=== PATIENT | female | born 1980 | race Hispanic/Latino ===

== ENCOUNTER 2016-05-28 10:29 | Emergency (ER) | payer SELFPAY ==
[~2016-05-28] VITALS: Ht 152.4 cm; Wt 87.5 kg
[~2016-05-28 10:29] MED LIST: MACRODANTIN100 MG OR; METOPROLOL25 M1 OR; NO HOME MEDS
[2016-05-28] MEDS ORDERED: LISINOPRIL20 MG PO (10:57)
[2016-05-28] MEDS ORDERED: LOPID600 MG PO (10:58)
[2016-05-28] MEDS ORDERED: METFORMIN500 MG PO (10:58)
[2016-05-28] MEDS ORDERED: CETIRIZINE10 MG PO (10:59)
[2016-05-28] MEDS ORDERED: MAXZIDE-2537.5 MG/TA PO (10:59)
[2016-05-28] MEDS ORDERED: BACTRIM DS1 TAB PO (11:00)
[2016-05-28 11:55] LABS: HEMATOCRIT 34.8 % (37.0-47.0); HEMOGLOBIN 11.4 g/dl (12.0-16.0); MEAN CELL VOLUME 92.1 fL CALC (80.0-100.0); MEAN CORPUSCULAR HGB 30.2 pG CALC (26.0-32.0); MEAN CORPUSCULAR HGB CONC 32.8 g/L CALC (32.0-36.0); NEUT# 9.15 thou/uL (2.00-7.15); RED BLOOD COUNT 3.78 mill/uL (4.20-5.60); RED CELL DISTRI WIDTH 15.9 % (11.5-15.5)
[2016-05-28 12:02] LABS: ALBUMIN 3.6 g/dL (3.2-5.0); ALKALINE PHOSPHATASE 118 u/l (38-126); ANION GAP 14 (6-22 (CALC)); BILIRUBIN, TOTAL 0.6 mg/dL (0.0-1.4); BUN 14 mg/dL (7-17); BUN/CREATININE RATIO 22 (12-20 (CALC)); CALCIUM 8.8 mg/dL (8.4-10.2); CARBON DIOXIDE 27 mmol/l (22-30); CHLORIDE 100 mmol/l (95-108); CREATININE 0.6 mg/dL (0.5-1.0); GFR > 60 ML/MIN (>=60 (CALC)); GFR FOR AFR.AMER. > 60 ML/MIN (>=60 (CALC)); GLUCOSE 275 mg/dL (65-105); POTASSIUM 4.8 mmol/l (3.5-5.1); SGOT/AST 37 u/l (14-36); SGPT/ALT 33 u/l (9-52); SODIUM 136 mmol/l (137-146); TOTAL PROTEIN 7.2 g/dL (6.3-8.2)
[2016-05-28] MEDS ORDERED: CEPHALEXIN500 MG PO (12:02)
[2016-05-28] MEDS ORDERED: CIPROFLOXACN500 MG PO (12:02)
[2016-05-28 12:05] LABS: IMMATURE GRANULOCYTES 6.7 % (0.0-1.0)
[2016-05-28 12:39] VITALS: BP 132/79
== END 2016-05-28 12:48 | disposition home or self-care (01) | DRG 603 ==
LOC: ED 10:29
PROVIDERS: Emergency Medicine
DX: L02.415 Cutaneous abscess of right lower limb (principal); B95.62 Methicillin resistant Staphylococcus aureus infection as the cause of diseases classified elsewhere; L03.115 Cellulitis of right lower limb

== ENCOUNTER 2017-01-25 14:06 | Emergency (ER) | payer SELFPAY ==
[~2017-01-25] VITALS: Ht 152.4 cm; Wt 80.0 kg
[~2017-01-25 14:06] MED LIST changes: +BACTRIM DS1 TAB PO; +CEPHALEXIN500 MG PO; +CETIRIZINE10 MG PO; +CIPROFLOXACN500 MG PO; +LISINOPRIL20 MG PO; +LOPID600 MG PO; +MAXZIDE-2537.5 MG/TA PO; +METFORMIN500 MG PO
[2017-01-25 15:59] LABS: HEMATOCRIT 37.9 % (37.0-47.0); HEMOGLOBIN 12.7 g/dl (12.0-16.0); MEAN CELL VOLUME 94.8 fL CALC (80.0-100.0); MEAN CORPUSCULAR HGB 31.8 pG CALC (26.0-32.0); MEAN CORPUSCULAR HGB CONC 33.5 g/L CALC (32.0-36.0); NEUT# 8.85 thou/uL (2.00-7.15); RED CELL DISTRI WIDTH 15.5 % (11.5-15.5)
[2017-01-25 16:18] LABS: ALBUMIN 4.3 g/dL (3.2-5.0); ALKALINE PHOSPHATASE 79 u/l (38-126); ANION GAP 18 (6-22 (CALC)); BILIRUBIN, TOTAL 0.6 mg/dL (0.0-1.4); BUN 28 mg/dL (7-17); BUN/CREATININE RATIO 37 (12-20 (CALC)); CALCIUM 10.1 mg/dL (8.4-10.2); CARBON DIOXIDE 23 mmol/l (22-30); CHLORIDE 102 mmol/l (95-108); CREATININE 0.8 mg/dL (0.5-1.0); GFR > 60 ML/MIN (>=60 (CALC)); GFR FOR AFR.AMER. > 60 ML/MIN (>=60 (CALC)); GLUCOSE 254 mg/dL (65-105); IMMATURE GRANULOCYTES 6.8 % (0.0-1.0); POTASSIUM 4.6 mmol/l (3.5-5.1); SGOT/AST 21 u/l (14-36); SGPT/ALT 45 u/l (9-52); SODIUM 139 mmol/l (137-146)
[2017-01-25] MEDS ORDERED: ALLOPURINOL300 MG PO (16:19)
[2017-01-25 16:57] LABS: URINE BILIRUBIN - DIPSTICK NEGATIVE (NEGATIVE); URINE BLOOD DIPSTICK TRACE-INTACT (NEGATIVE); URINE CLARITY SL CLOUDY; URINE COLOR YELLOW; URINE GLUCOSE - DIPSTICK >=1000 mg/dL (NEGATIVE); URINE KETONE NEGATIVE (NEGATIVE); URINE LEUK ESTERASE NEGATIVE (NEGATIVE); URINE NITRITE - DIPSTICK NEGATIVE (Negative); URINE PROTEIN - DIPSTICK 100 mg/dL (NEG-TRACE); URINE SPECIFIC GRAVITY 1.025; URINE UROBILINOGEN - DIPSTICK 0.2 E.U./dL (0.2)
[2017-01-25 17:19] LABS: URINE BACTERIA MANY hpf; URINE SQUAMOUS EPITHELIAL CELL FEW EPI/hpf (0-FEW)
[2017-01-25] MEDS ORDERED: CIPROFLOXACN500 MG PO (17:32)
[2017-01-25 17:45] VITALS: BP 120/71
== END 2017-01-25 17:45 | disposition home or self-care (01) | DRG 638 ==
LOC: ED 14:06
PROVIDERS: Emergency Medicine
DX: E11.65 Type 2 diabetes mellitus with hyperglycemia (principal); N39.0 Urinary tract infection, site not specified; I10 Essential (primary) hypertension; B96.20 Unspecified Escherichia coli [E. coli] as the cause of diseases classified elsewhere

== ENCOUNTER 2018-01-15 18:31 | Emergency (ER) | payer SELFPAY ==
[~2018-01-15] VITALS: Ht 152.4 cm; Wt 66.0 kg
[~2018-01-15 18:31] MED LIST changes: +ALLOPURINOL300 MG PO
[2018-01-15 19:46] LABS: HEMATOCRIT 43.6 % (37.0-47.0); HEMOGLOBIN 14.5 g/dl (12.0-16.0); IMMATURE GRANULOCYTES 3.4 % (0.0-5.0); MEAN CELL VOLUME 94.6 fL CALC (80.0-100.0); MEAN CORPUSCULAR HGB 31.5 pG CALC (26.0-32.0); MEAN CORPUSCULAR HGB CONC 33.3 g/L CALC (32.0-36.0); NEUT# 9.07 thou/uL (2.00-7.15); RED BLOOD COUNT 4.61 mill/uL (4.20-5.60)
[2018-01-15 19:55] LABS: ALBUMIN 4.6 g/dL (3.2-5.0); ALKALINE PHOSPHATASE 88 u/l (38-126); ANION GAP 16 (6-22 (CALC)); BILIRUBIN, TOTAL 0.6 mg/dL (0.0-1.4); BUN 32 mg/dL (7-17); BUN/CREATININE RATIO 35 (12-20 (CALC)); CARBON DIOXIDE 24 mmol/l (22-30); CHLORIDE 101 mmol/l (95-108); CREATININE 0.9 mg/dL (0.5-1.0); ETHYL ALCOHOL 0 mg/dl (0-30); GFR > 60 ML/MIN (>=60 (CALC)); GFR FOR AFR.AMER. > 60 ML/MIN (>=60 (CALC)); POTASSIUM 3.8 mmol/l (3.5-5.1); SGOT/AST 20 u/l (14-36); SODIUM 136 mmol/l (137-146); TOTAL PROTEIN 7.6 g/dL (6.3-8.2)
[2018-01-15 20:28] LABS: URINE BLOOD DIPSTICK LARGE (NEGATIVE); URINE COLOR BROWN; URINE GLUCOSE - DIPSTICK >=1000 mg/dL (NEGATIVE); URINE KETONE NEGATIVE (NEGATIVE); URINE LEUK ESTERASE TRACE (NEGATIVE); URINE PH 6.5 (4.5-8.0); URINE PROTEIN - DIPSTICK >=300 mg/dL (NEG-TRACE); URINE SPECIFIC GRAVITY >=1.030
[2018-01-15 20:29] LABS: URINE BILIRUBIN - DIPSTICK NEGATIVE (NEGATIVE); URINE CLARITY TURBID; URINE NITRITE - DIPSTICK POSITIVE (Negative)
[2018-01-15 20:30] LABS: URINE RBC TNTC RBC/hpf (0-5); URINE SQUAMOUS EPITHELIAL CELL FEW EPI/hpf (0-FEW)
[2018-01-15 20:40] LABS: BARBITURATES NEGATIVE (NEGATIVE); COCAINE NEGATIVE (NEGATIVE); METHADONE NEGATIVE (NEGATIVE); OXCYCODONE NEGATIVE (NEGATIVE); TETRAHYDROCANNABIONOL NEGATIVE (NEGATIVE); TRICYLIC ANTIDEPRESSANTS NEGATIVE (NEGATIVE)
[2018-01-15] MEDS ORDERED: GLUCOTROL10 MG PO (21:12)
[2018-01-15] MEDS ORDERED: CRESTOR20 MG PO (21:13)
[2018-01-15] MEDS ORDERED: VITAMIN B-121000 MCG PO (21:14)
[2018-01-15] MEDS ORDERED: CIPROFLOXACN500 MG PO (22:35)
[2018-01-15 23:34] VITALS: BP 138/93
== END 2018-01-15 23:25 | DRG 880 ==
LOC: ED 18:31
PROVIDERS: Emergency Medicine; Family Medicine
DX: R45.851 Suicidal ideations (principal); N39.0 Urinary tract infection, site not specified; F32.9 Major depressive disorder, single episode, unspecified; B96.1 Klebsiella pneumoniae [K. pneumoniae] as the cause of diseases classified elsewhere

== ENCOUNTER 2018-04-21 19:32 | Emergency (ER) | payer SELFPAY ==
[~2018-04-21] VITALS: Ht 152.4 cm; Wt 65.0 kg
[~2018-04-21 19:32] MED LIST changes: +CRESTOR20 MG PO; +GLUCOTROL10 MG PO; +VITAMIN B-121000 MCG PO
[2018-04-21] MEDS ORDERED: DOXYCYCL HYC100 MG PO (20:17)
[2018-04-21 20:39] VITALS: BP 129/91
== END 2018-04-21 20:39 | disposition home or self-care (01) | DRG 603 ==
LOC: ED 19:32
DX: L03.115 Cellulitis of right lower limb (principal); E11.9 Type 2 diabetes mellitus without complications; I10 Essential (primary) hypertension; M10.9 Gout, unspecified; E78.00 Pure hypercholesterolemia, unspecified

== ENCOUNTER 2018-04-23 09:56 | Emergency (ER) | payer SELFPAY ==
[~2018-04-23] VITALS: Ht 152.4 cm; Wt 63.6 kg
[~2018-04-23 09:56] MED LIST changes: +DOXYCYCL HYC100 MG PO
[2018-04-23] MEDS ORDERED: CRESTOR40 MG PO (10:52)
[2018-04-23] MEDS ORDERED: TRAMADOL HYDROC50 MG PO (11:19)
[2018-04-23 11:50] VITALS: BP 107/63
== END 2018-04-23 11:50 | disposition home or self-care (01) | DRG 603 ==
LOC: ED 09:56
DX: L03.115 Cellulitis of right lower limb (principal); E11.9 Type 2 diabetes mellitus without complications; I10 Essential (primary) hypertension; M10.9 Gout, unspecified; E78.00 Pure hypercholesterolemia, unspecified

== ENCOUNTER 2018-04-26 09:52 | Emergency (ER) | payer SELFPAY ==
[~2018-04-26] VITALS: Ht 152.4 cm; Wt 65.5 kg
[~2018-04-26 09:52] MED LIST changes: +CRESTOR40 MG PO; +TRAMADOL HYDROC50 MG PO
[2018-04-26 11:10] LABS: MEAN CELL VOLUME 99.5 fL CALC (80.0-100.0); MEAN CORPUSCULAR HGB 30.8 pG CALC (26.0-32.0); MEAN CORPUSCULAR HGB CONC 30.9 g/L CALC (32.0-36.0); NEUT# 8.11 thou/uL (2.00-7.15); RED BLOOD COUNT 3.77 mill/uL (4.20-5.60); RED CELL DISTRI WIDTH 14.4 % (11.5-15.5)
[2018-04-26 11:14] LABS: HEMATOCRIT 37.5 % (37.0-47.0); HEMOGLOBIN 11.6 g/dl (12.0-16.0)
[2018-04-26 11:15] LABS: IMMATURE GRANULOCYTES 8.6 % (0.0-5.0)
[2018-04-26 11:33] LABS: ANION GAP 16 (6-22 (CALC)); BUN 33 mg/dL (7-17); BUN/CREATININE RATIO 45 (12-20 (CALC)); CARBON DIOXIDE 23 mmol/l (22-30); CHLORIDE 103 mmol/l (95-108); CREATININE 0.7 mg/dL (0.5-1.0); GFR > 60 ML/MIN (>=60 (CALC)); GFR FOR AFR.AMER. > 60 ML/MIN (>=60 (CALC)); POTASSIUM 3.3 mmol/l (3.5-5.1); SODIUM 139 mmol/l (137-146)
[2018-04-26] MEDS ORDERED: LORTAB 5/3255 MG PO (13:54)
[2018-04-26 13:57] VITALS: BP 125/77
== END 2018-04-26 14:17 | disposition home or self-care (01) | DRG 603 ==
LOC: ED 09:52
PROVIDERS: Family Medicine
PROC: 0H9MXZZ Drainage of Right Foot Skin, External Approach (ICD-10-PCS; principal; 2018-04-26)
DX: L02.611 Cutaneous abscess of right foot (principal); E11.9 Type 2 diabetes mellitus without complications; I10 Essential (primary) hypertension; E78.00 Pure hypercholesterolemia, unspecified; M10.9 Gout, unspecified
CPT/HCPCS: Q9967

== ENCOUNTER 2018-04-28 09:31 | Emergency (ER) | payer SELFPAY ==
[~2018-04-28] VITALS: Ht 152.4 cm; Wt 66.0 kg
[~2018-04-28 09:31] MED LIST changes: +LORTAB 5/3255 MG PO
[2018-04-28] MEDS ORDERED: CIPROFLOXACN500 MG PO (12:05)
[2018-04-28 12:26] VITALS: BP 177/82
== END 2018-04-28 12:43 | disposition home or self-care (01) | DRG 951 ==
LOC: ED 09:31
DX: Z48.01 Encounter for change or removal of surgical wound dressing (principal); E11.9 Type 2 diabetes mellitus without complications; I10 Essential (primary) hypertension; M10.9 Gout, unspecified; E78.00 Pure hypercholesterolemia, unspecified

== ENCOUNTER 2018-04-30 13:09 | Emergency (ER) | payer SELFPAY ==
[~2018-04-30] VITALS: Ht 152.4 cm; Wt 65.5 kg
[2018-04-30 14:36] LABS: HEMATOCRIT 35.4 % (37.0-47.0); HEMOGLOBIN 11.4 g/dl (12.0-16.0); MEAN CELL VOLUME 98.6 fL CALC (80.0-100.0); MEAN CORPUSCULAR HGB 31.8 pG CALC (26.0-32.0); MEAN CORPUSCULAR HGB CONC 32.2 g/L CALC (32.0-36.0); NEUT# 8.61 thou/uL (2.00-7.15); RED BLOOD COUNT 3.59 mill/uL (4.20-5.60); RED CELL DISTRI WIDTH 14.4 % (11.5-15.5)
[2018-04-30 14:38] LABS: IMMATURE GRANULOCYTES 7.5 % (0.0-5.0)
[2018-04-30 14:49] LABS: ALBUMIN 3.2 g/dL (3.2-5.0); ALKALINE PHOSPHATASE 89 u/l (38-126); ANION GAP 12 (6-22 (CALC)); BILIRUBIN, TOTAL 0.4 mg/dL (0.0-1.4); BUN 24 mg/dL (7-17); BUN/CREATININE RATIO 43 (12-20 (CALC)); CARBON DIOXIDE 28 mmol/l (22-30); CHLORIDE 101 mmol/l (95-108); CREATININE 0.6 mg/dL (0.5-1.0); GFR > 60 ML/MIN (>=60 (CALC)); GFR FOR AFR.AMER. > 60 ML/MIN (>=60 (CALC)); POTASSIUM 3.9 mmol/l (3.5-5.1); SGOT/AST 32 u/l (14-36); SODIUM 138 mmol/l (137-146); TOTAL PROTEIN 5.9 g/dL (6.3-8.2)
[2018-04-30] MEDS ORDERED: CLEOCIN300 MG PO (16:14)
[2018-04-30 16:39] VITALS: BP 117/80
== END 2018-04-30 16:45 | disposition home or self-care (01) | DRG 603 ==
LOC: ED 13:09
DX: L03.115 Cellulitis of right lower limb (principal); B95.62 Methicillin resistant Staphylococcus aureus infection as the cause of diseases classified elsewhere; E11.9 Type 2 diabetes mellitus without complications; I10 Essential (primary) hypertension

== ENCOUNTER → 2018-05-02 | Outpatient (REF) | payer SELFPAY ==
[~2018-05-02] MED LIST changes: +CLEOCIN300 MG PO; +LEVAQUIN500 MG PO; +PROZAC20 MG PO
== END | disposition home or self-care (01) | DRG 594 ==
LOC: DI 11:05
PROVIDERS: ATTEND Podiatrist Foot & Ankle Surgery
DX: L97.419 Non-pressure chronic ulcer of right heel and midfoot with unspecified severity (principal)

== ENCOUNTER → 2018-05-07 | Outpatient (REF) | payer SELFPAY | END | disposition home or self-care (01) | DRG 593 | LOC: LABSPEC 18:14 | PROVIDERS: ATTEND Surgery | DX: L97.512 Non-pressure chronic ulcer of other part of right foot with fat layer exposed (principal); L03.115 Cellulitis of right lower limb; E11.621 Type 2 diabetes mellitus with foot ulcer; B95.62 Methicillin resistant Staphylococcus aureus infection as the cause of diseases classified elsewhere ==

== ENCOUNTER 2018-05-16 03:26 | Emergency (ER) | payer SELFPAY ==
[~2018-05-16] VITALS: Ht 152.4 cm; Wt 63.6 kg
[~2018-05-16 03:26] MED LIST changes: -LEVAQUIN500 MG PO; -PROZAC20 MG PO
[2018-05-16] MEDS ORDERED: LEVAQUIN500 MG PO (05:14)
[2018-05-16] MEDS ORDERED: PROZAC20 MG PO (05:15)
[2018-05-16 05:21] LABS: ALBUMIN 3.1 g/dL (3.2-5.0); BILIRUBIN, TOTAL 0.4 mg/dL (0.0-1.4); TOTAL PROTEIN 5.2 g/dL (6.3-8.2)
[2018-05-16 05:33] LABS: HEMATOCRIT 31.9 % (37.0-47.0); HEMOGLOBIN 10.3 g/dl (12.0-16.0); MEAN CELL VOLUME 94.4 fL CALC (80.0-100.0); MEAN CORPUSCULAR HGB 30.5 pG CALC (26.0-32.0); MEAN CORPUSCULAR HGB CONC 32.3 g/L CALC (32.0-36.0); RED BLOOD COUNT 3.38 mill/uL (4.20-5.60); RED CELL DISTRI WIDTH 15.1 % (11.5-15.5)
[2018-05-16 05:56] LABS: CREATININE 8.1 mg/dL (0.5-1.0); POTASSIUM 4.9 mmol/l (3.5-5.1)
[2018-05-16 06:29] LABS: IMMATURE GRANULOCYTES 6.6 % (0.0-5.0)
[2018-05-16 06:30] LABS: PLATELET COUNT 205 thou/uL (130-400)
[2018-05-16 06:31] LABS: BAND 4 % (0-8); HYPOCHROMIA FEW; MANUAL DIFFERENTIAL YES; MICROCYTOSIS FEW; PLATELET ESTIMATE NORMAL
[2018-05-16 06:32] LABS: OVALOCYTES FEW
[2018-05-16 08:01] LABS: INTERNATIONAL NORMALIZED RATIO 1.2 RATIO (0.7-1.3); PROTHROMBIN TIME 12.1 SECONDS (9.0-12.5)
[2018-05-16 08:40] VITALS: BP 107/59
== END 2018-05-16 08:45 | DRG 637 ==
LOC: ED 03:26 → ED-I 03:50 → ED 08:45
PROVIDERS: Emergency Medicine
PROC: 0T9B70Z Drainage of Bladder with Drainage Device, Via Natural or Artificial Opening (ICD-10-PCS; principal; 2018-05-16)
PROC: 05H533Z Insertion of Infusion Device into Right Subclavian Vein, Percutaneous Approach (ICD-10-PCS; 2018-05-16)
DX: E11.649 Type 2 diabetes mellitus with hypoglycemia without coma (principal); J18.9 Pneumonia, unspecified organism; N17.9 Acute kidney failure, unspecified; I10 Essential (primary) hypertension; E78.5 Hyperlipidemia, unspecified; Z79.84 Long term (current) use of oral hypoglycemic drugs

== ENCOUNTER 2018-08-08 11:56 | Observation (INO) | payer SELFPAY ==
[~2018-08-08] VITALS: Ht 152.4 cm; Wt 62.0 kg
[~2018-08-08 11:56] MED LIST changes: +LEVAQUIN500 MG PO; +PROZAC20 MG PO
--- NOTE | 2018-08-08 12:22 | NUR ---
PT AMB TO ROOM IN NO DISTRESS
--- NOTE | 2018-08-08 12:35 | NUR ---
IV INITAIED AND LABS COLLECTED. PT DENIES ANY PAIN OR SOB AT THIS TIME. CALL BRIEN RENEE.
[2018-08-08 12:49] LABS: MEAN CELL VOLUME 94.4 fL CALC (80.0-100.0); MEAN CORPUSCULAR HGB 30.8 pG CALC (26.0-32.0); MEAN CORPUSCULAR HGB CONC 32.6 g/L CALC (32.0-36.0); RED BLOOD COUNT 4.12 mill/uL (4.20-5.60); RED CELL DISTRI WIDTH 15.1 % (11.5-15.5)
--- NOTE | 2018-08-08 13:00 | NUR ---
PT RESTING COMFORTABLY IN STRETCHER IN NAD. CALL TESFAYE WITHIN REACH.
[2018-08-08] MEDS ORDERED: LIPITOR40 M1 PO (13:03)
[2018-08-08 13:06] LABS: BUN 28 mg/dL (7-17); CHLORIDE 101 mmol/l (95-108); POTASSIUM 4.9 mmol/l (3.5-5.1); SODIUM 138 mmol/l (137-146)
[2018-08-08 13:11] LABS: HEMATOCRIT 38.9 % (37.0-47.0); HEMOGLOBIN 12.7 g/dl (12.0-16.0); IMMATURE GRANULOCYTES 8.1 % (0.0-5.0); PLATELET COUNT 255 thou/uL (130-400)
[2018-08-08 13:12] LABS: ANION GAP 17 (6-22 (CALC)); BAND 4 % (0-8); BUN/CREATININE RATIO 47 (12-20 (CALC)); CARBON DIOXIDE 25 mmol/l (22-30); CREATININE 0.6 mg/dL (0.5-1.0); GFR > 60 ML/MIN (>=60 (CALC)); GFR FOR AFR.AMER. > 60 ML/MIN (>=60 (CALC)); MANUAL DIFFERENTIAL YES; PLATELET ESTIMATE NORMAL; TEAR DROP CELLS FEW
--- NOTE | 2018-08-08 13:47 | NUR ---
PT AMBUALTED TO BATHROOM WITH A STEADY GAIT TO OBTAIN URINE SAMPLE.
[2018-08-08 14:07] LABS: URINE BILIRUBIN - DIPSTICK NEGATIVE (NEGATIVE); URINE BLOOD DIPSTICK NEGATIVE (NEGATIVE); URINE COLOR YELLOW; URINE GLUCOSE - DIPSTICK 500 mg/dL (NEGATIVE); URINE KETONE NEGATIVE (NEGATIVE); URINE LEUK ESTERASE TRACE (NEGATIVE); URINE NITRITE - DIPSTICK NEGATIVE (Negative); URINE PROTEIN - DIPSTICK 30 mg/dL (NEG-TRACE); URINE SPECIFIC GRAVITY 1.015; URINE UROBILINOGEN - DIPSTICK 0.2 E.U./dL (0.2)
[2018-08-08 14:24] LABS: URINE SQUAMOUS EPITHELIAL CELL FEW EPI/hpf (0-FEW)
--- NOTE | 2018-08-08 14:40 | NUR ---
PT UPDATED ON CONTINUED WAIT TIME AND PLAN FOR REPEAT LABS AT 1530. PT DENIES ANY NEEDS. CALL TESFAYE WITHIN REACH.
--- NOTE | 2018-08-08 15:33 | NUR ---
ROCK WOOL APPLICATOR BEDSIDE FOR REPEAT TROPONIN DRAW.
--- NOTE | 2018-08-08 16:13 | NUR ---
REPEAT EKG PERFORMED PER DR BUITRAGO ORDER. PT ADVISED OF CONTINUED WAIT TIME FOR RESULTS. VERBALIZED UNDERSTANDING. DENIES ANY NEEDS. CALL LIGHT WITHIN REACH.
--- NOTE | 2018-08-08 17:00 | NUR ---
PT AMBUALTED TO BATHROOM WITH A STEADY GAIT AND DENIES ANY NEEDS AT THIS TIME. PT REQUESTING SOMETHING TO EAT. PT INFOMRED THAT RESULTS ARE NEEDED BEFORE FOOD OR DRINK. CALL BRIEN RENEE.
--- NOTE | 2018-08-08 17:45 | NUR ---
MD AT BEDSIDE TO DISCUSS RESULTS AND PLAN FOR ADMISSION.
--- NOTE | 2018-08-08 18:19 | NUR ---
REPORT CALLED TO NAKUL LAGUNAS.
--- NOTE | 2018-08-08 18:19 | NUR ---
INCLUDED IN PATIENT REPORT NEED TO HOLD METFORMIN FOR 2 DAYS AND INCREASE FLUIDS DUE TO IV CONTRAST.
--- NOTE | 2018-08-08 18:40 | NUR ---
Admission Note Report Given to: NAKUL LAGUNAS Transported by: X Wheelchair Stretcher Transported with: X Nurse X Transporter X Patent IV O2 X Taker Away PT TO ROOM 283 IN STABLE CONDITION. CARE RELINQUISHED TO NAKUL LAGUNAS.
[2018-08-08 18:53] VITALS: BP 144/93
--- NOTE | 2018-08-08 19:00 | NUR ---
BEDSIDE REPORT RECEIVED FROM NAKUL LAGUNAS. PT SITTING UP IN BED; ALERT AND OREINTED WITH SEVERAL FAMILY MEMBERS AT BEDSIDE; [place] SPEAKING ONLY. DENIES PAIN CURRENTLY. RESPIRATIONS EVEN AND UNLABORED ON ROOM AIR. IV FLUIDS INFUSING. ADMISSION ASSESSMENT COMPLETED AT THIS TIME; FAMILY ASSISTED WITH SOME TRANSLATION. ASSESSMENT WNL; PT DOES HAVE SOME CATARACTS. ORIENTED TO ROOM AND CALL LIGHT SYSTEM. PLAN OF CARE DISCUSSED. PT ENCOURAGED TO VERALIZE CONCERNS. STATES UNDERSTANDING. SAFETY MEAUSRES IN PLACE. CALL LIGHT WITHIN REACH.
--- NOTE | 2018-08-08 21:34 | NUR ---
PT UP TO VOID; AMBULATED TO BATHROOM WITH STEADY GAIT. REMOVED HAT FROM TOILET; EXPLAINED URINE COLLECTION AND PT NODS UNDERSTANDING. ONE FAMILY MEMBER AT BEDSIDE.
--- NOTE | 2018-08-08 22:08 | NUR ---
PT REQUESTED IV SITE TO LEFT HAND BE REMOVED R/T DISCOMFORT; SITE D/C'D. SITE TO RAC REMAINS AND APPEARS HEALTHY. IV FLUIDS INFUSING WITHOUT DIFFICULTY.
[2018-08-09] VITALS: BP 137/96
--- NOTE | 2018-08-09 00:25 | NUR ---
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 PT HAS DIABETIC ULCER TO POSTERIOR RIGHT HEEL THAT IS BEING TREATED AND HEALING; AQUACEL FOAM DRESSING IN PLACE AND CDI. PHOTOS TAKEN AND IN CHART. TELE ON. NO OTHER REQUESTS OR CONCERNS AT THIS TIME. CALL LIGHT WITHIN REACH.
[2018-08-09 04:00] VITALS: BP 140/91
--- NOTE | 2018-08-09 04:17 | NUR ---
NO ACUTE CHANGES IN CONDITION THROUGHOUT THE NIGHT. PT CONTINUES TO DENY PAIN. VS STABLE. IV SITE IS NOW SALINE LOCKED. INDEPENDENT IN ROOM; USES CALL LIGHT PRN FOR ASSISTANCE.
--- NOTE | 2018-08-09 04:52 | NUR ---
TELE MONITOR NOTIFIED NURSE OF ELEVATED HEART RATE IN THE 130'S; PT CURRENTLY AMBULATING INDEPENDENLTY TO BATHROOM WITH NO SIGNS OF DISTRESS.
[2018-08-09 04:57] LABS: HEMATOCRIT 37.4 % (37.0-47.0); HEMOGLOBIN 11.9 g/dl (12.0-16.0); MEAN CELL VOLUME 95.2 fL CALC (80.0-100.0); MEAN CORPUSCULAR HGB 30.3 pG CALC (26.0-32.0); MEAN CORPUSCULAR HGB CONC 31.8 g/L CALC (32.0-36.0); PLATELET COUNT 233 thou/uL (130-400); RED BLOOD COUNT 3.93 mill/uL (4.20-5.60); RED CELL DISTRI WIDTH 14.9 % (11.5-15.5)
[2018-08-09 05:33] LABS: ANION GAP 13 (6-22 (CALC)); BUN 22 mg/dL (7-17); BUN/CREATININE RATIO 36 (12-20 (CALC)); CARBON DIOXIDE 23 mmol/l (22-30); CHLORIDE 107 mmol/l (95-108); CREATININE 0.6 mg/dL (0.5-1.0); GFR > 60 ML/MIN (>=60 (CALC)); GFR FOR AFR.AMER. > 60 ML/MIN (>=60 (CALC)); SODIUM 139 mmol/l (137-146)
[2018-08-09 06:31] LABS: IMMATURE GRANULOCYTES 9.1 % (0.0-5.0); MANUAL DIFFERENTIAL YES
--- NOTE | 2018-08-09 07:05 | NUR ---
PT REPORT RECIEVED FROM CYNTHIA VILLATORO. PT RESTING. NO S/S OF DISTRESS. CALL LIGHT IN REACH. WILL CONTINUE TO MONITOR.
[2018-08-09 08:04] VITALS: BP 132/96
--- NOTE | 2018-08-09 08:04 | NUR ---
PT A/O X3. [place] SPEAKING ONLY. RESP EVEN AND UNLABORED. LUNG SOUNDS CLEAR. TELE IN PLACE. BOWEL SOUNDS ACTIVE X4. STRONG RADIAL AND PEDALN PULSES. #20 RAC SL. FLUSHED AND PATENT. SITE APPEARS HEALTHY. RT HEEL DRESSING CDI; DIABETIC ULCER. PT DENIES ANY PAIN OR NEEDS. POC DISCUSSED. SAFETY PRECAUTIONS IN PLACE. CALL LIGHT IN REACH. WILL CONTINUE TO MONITOR.
[2018-08-09 11:06] VITALS: BP 147/96
--- NOTE | 2018-08-09 12:01 | NUR ---
PT SITTING IN BED EATING LUNCH. NO C/O PAIN OR NEEDS. CALL LIGHT IN REACH. WILL CONTINUE TO MONITOR.
[2018-08-09] MEDS ORDERED: PANTOPRAZOLE SO40 M1 PO (12:35)
--- NOTE | 2018-08-09 13:04 | NUR ---
D/C INSTRUCTIONS DISCUSSED W/ PT AND FAMILY MEMEBER. BOTH STATE UNDERSTANDING. IV REMOVED. CATHETER INTACT. TELE REMOVED. PT GETTING DRESSED AT THIS TIME.
[2018-08-09 13:18] VITALS: BP 158/79
--- NOTE | 2018-08-09 13:37 | NUR ---
Discharge instructions given. Patient verbalizes understanding of same. Discharged in stable condition via Wheelchair to Home with family. All belongings sent with pt.
== END 2018-08-09 13:37 | disposition home or self-care (01) | DRG 204 ==
LOC: ED 11:56 → ED-I 17:31 → ED 17:47 → MS2 17:48
PROVIDERS: Family Medicine; ADMIT Internal Medicine; ATTEND Internal Medicine
DX: R06.02 Shortness of breath (principal); R94.31 Abnormal electrocardiogram [ECG] [EKG]; R42 Dizziness and giddiness; F41.9 Anxiety disorder, unspecified; I10 Essential (primary) hypertension; E11.9 Type 2 diabetes mellitus without complications; E78.5 Hyperlipidemia, unspecified; Z79.84 Long term (current) use of oral hypoglycemic drugs
CPT/HCPCS: G0378; Q9967